=== PATIENT | female | born 1970 ===

== ENCOUNTER 2024-10-10 10:25 | Outpatient (CLI) | payer OTHER, SELFPAY ==
--- NOTE | 2024-10-10 10:31 | MM_ITS ---
WS: [id number] BILATERAL SCREENING DIGITAL TOMOSYNTHESIS MAMMOGRAM WITH CAD HISTORY: SCREENING COMPARISON: 11/16/2017, 12/25/2012 Bilateral CC and MLO views with tomosynthesis and synthetic mammography submitted. Computer aided detection analyzed. Breast composition: There are scattered areas of fibroglandular density. No suspicious masses, microcalcifications or architectural distortion. MM/MM scr BI tomosynthesis [id number] IMPRESSION: BI-RADS: 1 - Negative. FOLLOW UP: 1 Year Follow-up
== END 2024-10-10 10:26 | disposition home or self-care (01) ==
LOC: RAD 10:27
PROVIDERS: Visit Provider Nurse Practitioner Family
DX: Z12.31 Encounter for screening mammogram for malignant neoplasm of breast (principal); R92.323 Mammographic fibroglandular density, bilateral breasts
CPT/HCPCS: 77063; 77067

== ENCOUNTER 2025-02-02 20:29 | Emergency (ER) | payer OTHER, SELFPAY ==
[2025-02-02 20:32] VITALS: BP 175/116; PULSE 118; RESP 20; TEMP 36.5; O2SAT 100; BMI 24.9
--- OUTSIDE RECORDS SUMMARY | 2025-02-02 20:34 | XMS_ITS | Clinical Summary ---
Author Organization [facility] Address [address] [place] [address] Care Team Providers Care [employer] Name Role Phone Arya Garcia Primary Care Provider [phone] Allergies No known active allergies Medications MULTIVITAMIN ORAL Take by mouth. Active MV,CA,MIN/FA/HER BAL NO.159 (ESTROVEN REGULAR STRENGTH ORAL) Take by mouth. Active cyclobenzaprine (FLEXERIL) 10 mg tablet Take 1 Tab by mouth 3 times daily as needed for Spasm. 90 Tab 0 12/29/2013 Active venlafaxine (EFFEXOR XR) 75 mg Extended Release 24 hour capsuleIndicatio ns:Estrogen deficiency Take 1 Cap (75 mg) by mouth daily. 30 Cap 1 07/07/2014 Active Active Problems Problem Noted Date Diagnosed Date S/P laparoscopic hysterectomy 03/24/2013 Overview (03/24/2013): TOTAL LAPAROSCOPIC HYSTERECTOMY BILATERAL SALPINGOOPHORECTOMY morcellation of uterus Routine gynecological examination 06/05/2012 Resolved Problems Problem Noted Date Diagnosed Date Resolved Date Leiomyoma of uterus, unspecified 03/24/2013 07/07/2014 Enlarged uterus 03/24/2013 07/07/2014 Uterine fibroid 03/05/2013 07/07/2014 Pelvic pain in female 03/05/20132014 Family History Medical History Relation Name Comments Heart Disease Father Breast Cancer Maternal Aunt Cancer Maternal Uncle PROSTATE CANC ER Healthy Mother Hypertension Mother Breast Cancer Other MAT G AUNT Ovarian Cancer Neg Hx Relation Name Status Comments Daughter NONE Father Maternal Aunt Alive Maternal Grandmother Maternal Uncle Mother Alive Other MAT G AUNT Alive Sister NONE Social History Tobacco Use Types Packs/Day Years Used Date Smoking Tobacco: Never Smokeless Tobacco: Never Alcohol Use Standard Drinks/Week Comments No 0 (1 standard drink = 0.6 oz pur e alcohol) Comments No Sex and Gender Information Value Date Recorded Sex Assigned at Not on file Legal Sex Female 6:40 AM [employer] Gender Identity Not on file Sexual Orientation Not on file Occupation Industry Job Start Date Job End Date Not on file Not on file Not on file Not on file Last Filed Vital Signs Vital Sign Reading Time Taken Comments Blood Pressure 130/78 07/07/2014 9:33 AM CDT Pulse 63 01/15/2014 7:31 AM [employer] Temperature 36.7 C (98.1 F) 01/15/2014 6:54 AM [employer] Respiratory Rate 16 01/15/2014 7:28 AM [employer] Oxygen Saturation 96% 01/15/2014 7:31 AM [employer] Inhaled Oxygen Concentration - - Weight 67.6 kg (149 lb) 07/07/2014 9:33 AM CDT Height 162.6 cm (5' 4 ) 07/07/2014 9:33 AM CDT Body Mass Index 25.58 07/07/2014 9:33 AM CDT Plan of Treatment Health Maintenance Due Date Last Done Comments DTAP/TDAP/TD VACCINES (1 - Tdap) 12/19/1990 HEPATITIS B VACCINES (1 of 3 - 19+ 3-dose series) 08/1990 BREAST CANCER SCREENING 12/25/2013 12/25/2012 COLORECTAL SCREENING 12/19/2016 Colorectal Cancer Screening 12/19/2016 FIT-DNA Q 3 years 12/19/2016 FIT/FOBT Q 1 year 12/19/2016 Flex Sig/CT Colonography Q 5 years 12/19/2016 ZOSTER VACCINE (1 of 2) 12/19/2021 INFLUENZA VACCINE (#1) 2024 Procedures Procedure Name Priority Date/Time Associated Diagnosis Comments MAMMO SCREEN BILAT W OR WO CAD Routine 12/25/2012 1:16 PM [employer] Other screening mammogram from Last 3 Months or Most Recently Relevant to Health Maintenance Results * MAMMO DIGITAL SCREEN BILAT (12/25/2012 1:16 PM [employer]ER) Anatomical Region Laterality Modality Breast Bilateral Mammography Narrative 12/26/2012 3:03 PM [employer] Bilateral Mammogram Reason for Exam: Screening Comparison: No prior exam(s) for comparison. Findings: Bilateral CC and MLO views were obtained. This examination was reviewed with the aid of a computer-aided detection system(CAD). The breast tissue density is average. Procedure Note Jethro Warren MD - 12/26/2012 Bilateral Mammogram Reason for Exam: Screening Comparison: No prior exam(s) for comparison. Findings: Bilateral CC and MLO views were obtained. This examination was reviewed with the aid of a computer-aided detectionsystem(CAD). The breast tissue density is average. Sharona Velez MD MAMMO ORDERABLES Final Res ult from Last 3 Months or Most Recently Relevant to Health Maintenance Insurance [address] [place] [address] [employer] Advance Directives For more information, please contact: [phone] * Full Code (Latest Code Status on File) Date Activated Date Inactivated Comments 03/24/2013 1:24 PM 03/25/2013 12:10 PM * Full Code Date Activated Date Inactivated Comments 03/24/2013 9:14 AM 03/24/2013 1:24 PM * Full Code Date Activated Date Inactivated Comments 03/24/2013 6:13 AM 03/24/2013 9:14 AM Care Teams Pl[employer] Tableman Relationship Specialty Start Date End Date Arya Garcia DO [address] [place] [address] PCP - General Family Practice 06/05/12
--- OUTSIDE RECORDS SUMMARY | 2025-02-02 20:34 | XMS_ITS | Data Portability ---
Author Organization [facility] Address [address] [place] [address] Care Team Providers Care Academic Tutor Name Role Phone GLADYS GALEANA Primary Care Provider Assessment Encounter Date Assessment Date Assessment LastModified by Organization Details LastModified Time 09/04/2024 09/04/2024 Patient here today for a check-up. Overall she has been doing well. Labs reviewed with patient. Not available 09/04/2024 11:04:59 Plan of Treatment Reminders Order Date Submit Date Provider Last Modified By Organization Details Last Modified Time Details Appointments None recorded. Lab PPD (purified protein derivative) , skin test 2024 025 [facility] ([facility]), [address] [place], [address], 14:21:33 noninvasive colorectal cancer DNA + occult blood screening, QL, stool 2024 025 [email or web address] [id number] [facility], [address], [place], [address], 12:17:02 CMP, serum or plasma 2024 025 [facility], [address] [place] [address], [facility] [address], [place], [address], 10:18:07 lipid panel, blood 2024 025 [facility], [address], [address], [place], [address], 5 10:18:09 CBC 2024 025 [facility], [address], [address], [place], [address], 5 09:16:02 thyrotropin , QN, serum or plasma 2024 025 [facility], [address], [address], [place], [address], 5 09:58:53 PPD (purified protein derivative) , skin test 2023 024 [facility] ([facility]), [address] [place], [address], 4 12:35:31 PPD (purified protein derivative) , skin test 2022 023 [facility] ([facility]), [address] [place], [address], 3 15:57:58 Referral None recorded. Procedures None recorded. Surgeries None recorded. Imaging MAMMO, screening, digital, bilateral 2024 025 [facility] [address] [place], [address], 5 12:10:49 Medication Orders Tubersol 5 tub. unit/0.1 mL intradermal injection solution 2024 025 [email or web address] [id number] Not available 19:54:36 Patient TargetsNo targets recorded. Patient Instructions Encounter Date Encounter Id Patient Instructions Last Modified By Organization Details Last Modified Time 09/04/2024 [id number] Call or return for questions or concerns. Not available 09/18/2024 14:26:03 Reason for Referral None Reported. Results Created Date Observation Date Name Description Value Unit Range Abnormal Flag Note LastModifiedBy Organization Detail LastModifiedTime 10/07/1910/06/2022 PPD (carlos manuel fied prote in deriv ative ), skin test TB negati ve Not Available [facility] ([facility]) [address] [place], [address], 10/06/2022 14:28:42 03/15/19 24 03/15/2023 CBC WBC 6.4 x10 4.0-10 .5 Not Available [facility] [address] [address], [place], [address], 03/15/2023 10:06:46 03/15/19 24 03/15/2023 CBC RBC 4.37 x10 3.50-5 .50 Not Available [facility] [address] [facility] [address], [place], [address], 03/15/2023 10:06:46 03/15/19 24 03/15/2023 CBC HGB 13.4 g/dL 12.0-1 6.0 Not Available [facility] [address] [address], [place], [address], 03/15/2023 10:06:46 03/15/19 24 03/15/2023 CBC HCT 38.2 % 37.0-4 7.0 Not Available [facility] [address] [facility] [address], [place], [address], 03/15/2023 10:06:46 03/15/19 24 03/15/2023 CBC MCV 87.3 fL 80.0-9 9.9 Not Available [facility] [address] [facility] [address], [place], [address], 03/15/2023 10:06:46 03/15/19 24 03/15/2023 CBC MCH 30.7 pg 27.0-3 2.0 Not Available [facility] [address] [facility] 1, [place], [address], 03/15/2023 10:06:46 03/15/19 24 03/15/2023 CBC MCHC 35.1 g/dL 32.0-3 6.0 Not Available [facility] [address] [facility] 1, [place], [address], 03/15/2023 10:06:46 03/15/19 24 03/15/2023 CBC RDW 13.0 % 11.5-1 4.6 Not Available [facility] [address] [facility] 1, [place], [address], 03/15/2023 10:06:46 03/15/19 24 03/15/2023 CBC plt 201.4 x10 140.0- 451.0 Not Available [facility] [address] [facility], [place], [address], 03/15/2023 10:06:46 03/15/19 24 03/15/2023 CBC lymphocytes % 29.2 % 20.0-5 0.0 Not Available [facility] [address] [facility], [place], [address], 03/15/2023 10:06:46 03/15/19 24 03/15/2023 CBC granulcytes % 62.0 % 30.0-7 0.0 Not Available [facility] [address] [facility], [place], [address], 03/15/2023 10:06:46 03/15/19 24 03/15/2023 CBC monocytes % 6.8 % 2.0-10 .0 Not Available [facility] [address] [facility] 1, [place], [address], 03/15/2023 10:06:46 03/15/19 24 03/15/2023 CBC granulcytes# 3.9 x10 Not Lydia ilable [facility] [address] [address], [place], [address], 03/15/2023 10:06:46 03/15/19 24 03/15/2023 CBC lymphocytes # 1.9 x10 Not Available [facility] [address] [address], [place], [address], 03/15/2023 10:06:46 03/15/19 24 03/15/2023 CBC monocytes # 0.4 x10 Not Avai lable [facility] [address] [address], [place], [address], 03/15/2023 10:06:46 03/15/19 24 03/15/2023 CMP (FEMA LE) glucose 88.0 mg/dL 60.0-9 9.0 Not Available [facility] [address] [address], [place], [address], 03/15/2023 11:13:52 03/15/19 24 03/15/2023 CMP (FEMA LE) BUN (blood urea nitrogen) 16.0 mg/dL 10.0-2 6.0 Not Available [facility] [address] [address], [place], [address], 03/15/2023 11:13:52 03/15/19 24 03/15/2023 CMP (FEMA LE) creatinine (serum) 0.7 mg/dL 0.4-1. 5 Not Available [facility] [address] [address], [place], [address], 03/15/2023 11:13:52 03/15/19 24 03/15/2023 CMP (FEMA LE) BUN/creatini ne ratio 21.92 ratio Not Available [facility] [address] [facility], [place], [address], 03/15/2023 11:13:52 03/15/19 24 03/15/2023 CMP (FEMA LE) eGFR calculated 89.3 Not Available [facility] [address] [facility], [place], [address], 03/15/2023 11:13:52 03/15/19 24 03/15/2023 CMP (FEMA LE) total protein 7.8 g/dL 6.0-8. 5 Not Available [facility] [address] [facility] [address], [place], [address], 03/15/2023 11:13:52 03/15/19 24 03/15/2023 CMP (FEMA LE) total bilirubin 1.0 mg/dL 0.2-1. 3 Not Available [facility] [address] [facility] [address], [place], [address], 03/15/2023 11:13:52 03/15/19 24 03/15/2023 CMP (FEMA LE) albumin 4.5 g/dL 3.5-5. 5 Not Available [facility] [address] [facility] [address], [place], [address], 03/15/2023 11:13:52 03/15/19 24 03/15/2023 CMP (FEMA LE) globulin 3.3 calc Not Available [facility] [address] [facility] [address], [place], [address], 03/15/2023 11:13:52 03/15/19 24 03/15/2023 CMP (FEMA LE) AST (SGOT) 23.0 U/L 0.0-46 .0 Not Available [facility] [address] [facility] [address], [place], [address], 03/15/2023 11:13:52 03/15/19 24 03/15/2023 CMP (FEMA LE) altv (SGPT) 18.0 U/L 13.0-6 9.0 normal Not Available [facility] [address] [facility] [address], [place], [address], 03/15/2023 11:13:52 03/15/19 24 03/15/2023 CMP (FEMA LE) A/G ratio 1.4 ratio Not Available [facility] [address] [facility] [address], [place], [address], 03/15/2023 11:13:52 03/15/19 24 03/15/2023 CMP (FEMA LE) ALP phos 68.0 U/L 30.0-1 40.0 normal Not Available [facility] [address] [facility] [address], [place], [address], 03/15/2023 11:13:52 03/15/19 24 03/15/2023 CMP (FEMA LE) calcium 9.8 mg/dL 8.4-10 .5 Not Available [facility] [address] [facility] [address], [place], [address], 03/15/2023 11:13:52 03/15/19 24 03/15/2023 CMP (FEMA LE) sodium 142.0 mmol/ L 136.0- 145.0 Not Available [facility] [address] [facility] [address], [place], [address], 03/15/2023 11:13:52 03/15/19 24 03/15/2023 CMP (FEMA LE) potassium 3.8 mmol/ L 3.5-5. 1 Not Available [facility] [address] [facility] [address], [place], [address], 03/15/2023 11:13:52 03/15/19 24 03/15/2023 CMP (FEMA LE) chloride 109.0 mmol/ L 98.0-1 10.0 normal Not Available [facility] [address] [facility] [address], [place], [address], 03/15/2023 11:13:52 03/15/19 24 03/15/2023 CMP (FEMA LE) C02 28.0 mmol/ L 22.0-3 1.0 Not Available [facility] [address] [facility] [address], [place], [address], 03/15/2023 11:13:52 03/15/19 24 03/15/2023 CMP (FEMA LE) anion gap 5.0 calc Not Available [facility] [address] [facility] [address], [place], [address], 03/15/2023 11:13:52 03/15/19 24 03/15/2023 CMP (FEMA LE) osmolality 293.7 calc Not Available [facility] [address] [facility] [address], [place], [address], 03/15/2023 11:13:52 03/15/19 24 03/15/2023 LIPID PROFI LE (FEMA LE) cholesterol 202.0 mg/dL 0.0-20 0.0 high Not Available [facility] [address] [address], [place], [address], 03/15/2023 11:13:55 03/15/19 24 03/15/2023 LIPID PROFI LE (FEMA LE) trig 124.0 mg/dL 0.0-15 0.0 Not Available [facility] [address] [facility] [address], [place], [address], 03/15/2023 11:13:55 03/15/19 24 03/15/2023 LIPID PROFI LE (FEMA LE) HDL - direct 56.0 mg/dL >40.0 Not Available [facility] [address] [facility] [address], [place], [address], 03/15/2023 11:13:55 03/15/19 24 03/15/2023 LIPID PROFI LE (FEMA LE) VLDL - direct 24.8 mg/dL Not Available [facility] [address] [facility] 1, [place], [address], 03/15/2023 11:13:55 03/15/19 24 03/15/2023 LIPID PROFI LE (FEMA LE) LDL - direct 121.2 mg/dL 0.0-13 0.0 Not Available [facility] [address] [facility] [address], [place], [address], 03/15/2023 11:13:55 03/15/19 24 03/15/2023 TSH, serum or plasm a TSH 1.26 Not Available [facility] ([facility]) [address] [place], [address], 03/15/2023 08:58:46 11/15/19 24 11/15/2023 PPD (carlos manuel fied prote in deriv ative ), skin test TB negati ve Not Available [facility] ([facility]) [address] [place], [address], 11/13/2023 16:56:15 08/07/19 25 08/06/2024 CBC WBC 5.2 x10 4.0-10 .5 Not Available [facility] [address] [facility], [place], [address], 08/06/2024 09:16:02 08/07/1908/06/2024 CBC RBC 4.21 x10 3.50-5 .50 Not Available [facility] [address] [facility], [place], [address], 08/06/2024 09:16:02 06/08/06/2024 CBC HGB 12.5 g/dL 12.0-1 6.0 Not Available [facility] [address] [facility] 1, [place], [address], 08/06/2024 09:16:02 08/07/1908/06/2024 CBC HCT 38.0 % 37.0-4 7.0 Not Available [facility] [address] [facility] 1, [place], [address], 08/06/2024 09:16:02 08/07/1908/06/2024 CBC MCV 90.2 fL 80.0-9 9.9 Not Available [facility] [address] [facility] 1, [place], [address], 08/06/2024 09:16:02 08/07/1908/06/2024 CBC MCH 29.7 pg 27.0-3 2.0 Not Available [facility] [address] [facility] 1, [place], [address], 08/06/2024 09:16:02 08/07/1908/06/2024 CBC MCHC 32.9 g/dL 32.0-3 6.0 Not Available [facility] [address] [facility] 1, [place], [address], 08/06/2024 09:16:02 08/07/1908/06/2024 CBC RDW 12.9 % 11.5-1 4.5 Not Available [facility] [address] [facility] 1, [place], [address], 08/06/2024 09:16:02 08/07/1908/06/2024 CBC plt 197.9 x10 140.0- 451.0 Not Available [facility] [address] [facility] 1, [place], [address], 08/06/2024 09:16:02 08/07/19 25 08/06/2024 CBC lymphocytes % 35.5 % 20.0-5 0.0 Not Available [facility] [address] [facility] 1, [place], [address], 08/06/2024 09:16:02 08/07/1908/06/2024 CBC granulcytes % 53.2 % 30.0-7 0.0 Not Available [facility] [address] [facility] 1, [place], [address], 08/06/2024 09:16:02 08/07/1908/06/2024 CBC monocytes % 8.2 % 2.0-16 .0 Not Available [facility] [address] [facility], [place], [address], 08/06/2024 09:16:02 08/07/19 25 08/06/2024 CBC granulcytes# 2.8 x10 Not Lydia ilable [facility] [address] [facility] [address], [place], [address], 08/06/2024 09:16:02 08/07/1908/06/2024 CBC lymphocytes # 1.8 x10 Not Available [facility] [address] [facility] [address], [place], [address], 08/06/2024 09:16:02 08/07/1908/06/2024 CBC monocytes # 0.4 x10 Not Avai lable [facility] [address] [facility] 1, [place], [address], 08/06/2024 09:16:02 08/07/1908/06/2024 TSH TSH 2.08 uIU/m L 0.49-3 .82 Not Available [facility] [address] [facility] 1, [place], [address], 08/06/2024 09:58:53 08/07/19 25 08/06/2024 CMP (FEMA LE) glucose 90.0 mg/dL 60.0-9 9.0 Not Available [facility] [address] [address], [place], [address], 08/06/2024 10:18:07 08/07/19 25 08/06/2024 CMP (FEMA LE) BUN (blood urea nitrogen) 18.0 mg/dL 10.0-2 6.0 Not Available [facility] [address] [address], [place], [address], 08/06/2024 10:18:07 08/07/19 25 08/06/2024 CMP (FEMA LE) creatinine (serum) 0.7 mg/dL 0.4-1. 5 Not Available [address] [address], [place], [address], 08/06/2024 10:18:07 08/07/19 25 08/06/2024 CMP (FEMA LE) BUN/creatini ne ratio 25.71 ratio Not Available [address] [address], [place], [address], 08/06/2024 10:18:07 08/07/19 25 08/06/2024 CMP (FEMA LE) eGFR calculated 93.4 Not Available [address] [address], [place], [address], 08/06/2024 10:18:07 08/07/19 25 08/06/2024 CMP (FEMA LE) total protein 7.0 g/dL 6.0-8. 5 Not Available [address] [address], [place], [address], 08/06/2024 10:18:07 08/07/19 25 08/06/2024 CMP (FEMA LE) total bilirubin 1.1 mg/dL 0.2-1. 3 Not Available [facility] [address] [facility] [address], [place], [address], 08/06/2024 10:18:07 08/07/19 25 08/06/2024 CMP (FEMA LE) albumin 4.1 g/dL 3.5-5. 5 Not Available [facility] [address] [facility] [address], [place], [address], 08/06/2024 10:18:07 08/07/19 25 08/06/2024 CMP (FEMA LE) globulin 2.9 calc Not Available [facility] [address] [facility] [address], [place], [address], 08/06/2024 10:18:07 08/07/19 25 08/06/2024 CMP (FEMA LE) AST (SGOT) 23.0 U/L 0.0-46 .0 Not Available [facility] [address] [facility] 1, [place], [address], 08/06/2024 10:18:07 08/07/19 25 08/06/2024 CMP (FEMA LE) altv (SGPT) 19.0 U/L 13.0-6 9.0 normal Not Available [facility] [address] [facility] 1, [place], [address], 08/06/2024 10:18:07 08/07/19 25 08/06/2024 CMP (FEMA LE) A/G ratio 1.4 ratio Not Available [facility] [address] [facility] 1, [place], [address], 08/06/2024 10:18:07 08/07/19 25 08/06/2024 CMP (FEMA LE) ALP phos 68.0 U/L 30.0-1 40.0 normal Not Available [facility] [address] [facility] 1, [place], [address], 08/06/2024 10:18:07 08/07/19 25 08/06/2024 CMP (FEMA LE) calcium 9.0 mg/dL 8.4-10 .5 Not Available [facility] [address] [facility] [address], [place], [address], 08/06/2024 10:18:07 08/07/19 25 08/06/2024 CMP (FEMA LE) sodium 140.0 mmol/ L 136.0- 145.0 Not Available [facility] [address] [facility] [address], [place], [address], 08/06/2024 10:18:07 08/07/19 25 08/06/2024 CMP (FEMA LE) potassium 3.3 mmol/ L 3.5-5. 1 low Not Available [facility] [address] [facility] [address], [place], [address], 08/06/2024 10:18:07 08/07/19 25 08/06/2024 CMP (FEMA LE) chloride 106.0 mmol/ L 98.0-1 10.0 normal Not Available [facility] [address] [facility] 1, [place], [address], 08/06/2024 10:18:07 08/07/19 25 08/06/2024 CMP (FEMA LE) C02 27.0 mmol/ L 22.0-3 1.0 Not Available [facility] [address] [facility] 1, [place], [address], 08/06/2024 10:18:07 08/07/19 25 08/06/2024 CMP (FEMA LE) anion gap 7.0 calc Not Available [facility] [address] [facility] 1, [place], [address], 08/06/2024 10:18:07 08/07/19 25 08/06/2024 CMP (FEMA LE) osmolality 290.5 calc Not Available [facility] [address] [facility] 1, [place], [address], 08/06/2024 10:18:07 08/07/19 25 08/06/2024 LIPID PROFI LE (FEMA LE) cholesterol 194.0 mg/dL 0.0-20 0.0 Not Available [facility] [address] [facility] 1, [place], [address], 08/06/2024 10:18:09 08/07/19 25 08/06/2024 LIPID PROFI LE (FEMA LE) trig 98.0 mg/dL 0.0-15 0.0 Not Available [facility] [address] [facility] 1, [place], [address], 08/06/2024 10:18:09 08/07/19 25 08/06/2024 LIPID PROFI LE (FEMA LE) HDL - direct 51.0 mg/dL >40.0 Not Available [facility] [address] [facility] 1, [place], [address], 08/06/2024 10:18:09 08/07/19 25 08/06/2024 LIPID PROFI LE (FEMA LE) VLDL - direct 19.6 mg/dL Not Available [facility] [address] [facility] 1, [place], [address], 08/06/2024 10:18:09 08/07/19 25 08/06/2024 LIPID PROFI LE (FEMA LE) LDL - direct 123.4 mg/dL 0.0-13 0.0 Not Available [facility] [address] [address], [place], [address], 08/06/2024 10:18:09 10/20/19 25 10/19/2024 COLOG UARD cologuard result reportable NEGATI VE negati ve normal The Colog uard (TM) test was perfo rmed on this speci men. NEGAT NGHIA TEST RESUL T. A negat nghia Colog uard resul t indic ates a low likel ihood that a color ectal cance r (CRC) or advan carlos adeno ma (kayla omato us polyp s with more advan carlos pre-m align ant featu res) is prese nt. The chanc e that a perso n with a negat nghia Colog uard test has a color ectal cance r is less than 1 in 1500 (nega tive predi ctive value >99.9 %) or has an advan carlos adeno ma is less than 5.3% (nega tive predi ctive value 94.7% ). These data are based on a prosp ectiv e cross -sect ional study of 10,00 0 indiv idual s at [facility] risk for color ectal cance r who were scree parminder with both Colog uard and colon oscop y. (Alberta Palacio. et al, N Engl J Med 2014; 370(1 4):12 86-12 97) The dyana l value (refe rence range ) for this assay is negat nghia. COLOG UARD RE-SC REENI NG RECOM MENDA TION: Perio dic color ectal cance r scree becki is an impor tant part of preve ntive healt hcare for asymp tomat ic indiv idual s at [facility] risk for color ectal cance r. Follo wing a negat nghia Colog uard resul t, the Ameri can Cance r Socie ty and U.S. Multi -Soci ety Task Force scree becki guide lines recom mend a Colog uard re-sc reeni ng inter christal of 3 years . Refer ences : Ameri can Cance r Socie ty Guide line for Color ectal Cance r Scree becki: https ://chau w.can cer.o rg/ca ncer/ colon -rect al-ca ncer/ detec tion- diagn osis- stagi ng/ac s-rec ommen datio ns.ht ml.; Vel DK, Marium collins CR, Glory butler JK, Color ectal Cance r Scree becki: Recom menda tions for Physi cians and Patie nts from the U.S. Multi -Soci ety Task Force on Color ectal Cance r Scree becki , Thompson olsenog y 2017; 112:1 016-1 030. TEST DESCR IPTIO N: [place] site algor ithmi c feli sis of stool DNA-b iomar kers with hemog lobin immun oassa y. Quant itati ve value s of indiv idual bioma rkers are not repor table and are not assoc iated with indiv idual bioma rker resul t refer ence range s. Colog uard is inten ded for color ectal cance r scree becki of adult s of eithe r sex, 45 years or older , who are [facility] for color ectal cance r (CRC) . Colog uard has been appro abhishek for use by the U.[place]. FDA. The perfo rmanc e of Colog uard was estab lishe d in a cross secti onal study of [facility] adult s aged 50-84 . Colog uard perfo rmanc e in patie nts ages 45 to 49 years was estim ated by sub-g roup feli sis of near- age group s. Colon oscop ies perfo rmed for a posit nghia resul t may find as the most clini albaro signi michael t lesio n: color ectal cance r [4.0% ], advan carlos adeno ma (incl uding sessi le julia jose polyp s great er than or equal to 1cm diame ter) [20%] or non- advan carlos adeno ma [31%] ; or no color ectal neopl aminah [45%] . These estim ates are deriv ed from a prosp ectiv e cross -sect ional scree becki study of 10,00 0 indiv idual s at [facility] risk for color ectal cance r who were scree parminder with both Colog uard and colon oscop y. (Alberta Daley al, N Engl J Med 2014; 370(1 4):12 86-12 97.) Colog uard may produ ce a false negat nghia or false posit nghia resul t (no color ectal cance r or preca ncero us polyp prese nt at colon oscop y follo w up). A negat nghia Colog uard test resul t does not guara ntee the absen ce of CRC or advan carlos adeno ma (pre- cance r). The curre nt Colog uard scree becki inter chrisatl is every 3 years . (Amer ican Cance r Socie ty and U.S. Multi -Soci ety Task Force ). Colog uard perfo rmanc e data in a 10,00 0 patie nt pivot al study using colon oscop y as the refer ence metho d can be acces sed at the follo wing locat ion: www.e xactl abs.c om/re sults . Addit ional descr iptio n of the Colog uard test proce ss, warni ngs and preca ution s can be found at www.c ologu bethany.c om. Not Available [facility] [address], [place], [address], 10/25/2024 10:28:35 10/30/19 25 10/29/2024 PPD (carlos manuel fied prote in deriv ative ), skin test TB negati ve Not Available [facility] ([facility]) [address] [place], [address], 10/27/2024 17:35:08 10/11/19 25 10/10/2024 MAMMO , scree becki, digit al, bilat eral No observ ation record ed. [facility] [address] [place], [address], 10/14/2024 18:08:49 Result Notes None recorded. Problems Name Problem SNOMED Code Status Onset Date Resolution Date Notes Provider Name and Address Organization Details Recorded Time Mitral valve prolapse 510004508 Active 022 Mitral Valve Prolaps e; 1998; 11:52AM by Davis bella, Office Visit; Promote d; acuity set as *; 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 11:57:06 Headache 15955172 Active 025 ELISABETH CASH [facility] 5 08:58:08 Problem Notes None recorded. Procedures Surgical History Date Name Laterality Status Provider Name and Address Organization Details Recorded Time 10/20/19 25 screening for malignant neoplasm of colon completed MOE DUTTON [facility] 10/27/2024 14:12:26 10/11/19 25 screening mammography completed MOE DUTTON [facility] 10/11/2024 15:46:32 02/12/19 14 Hysterectomy completed GLADYS GALEANA, [address], [address], [facility] [place] [place] 09/04/2024 10:59:19 Imaging Results None recorded. Procedure Notes None recorded. Medical Equipment None Reported. Allergies Allergen ID Allergen Name Allergen Category Reaction Reaction Severity Criticality Documentation Date Start Date Code Code System Note Provider Name and Address Organization Details Recorded Time 07967 wasp venoms environme nt anaphylax is Not available Not available 09/09/2022 53977 RxNorm [facility] 10:[facility]33 Medications Name Sig Start Date Stop Date Status Note LastModified by Organization Details LastModified Time doxycycli ne hyclate 100 mg capsule Take 1 capsule twice a day by oral route for 7 days. 05/09 completed Not Available Not Available Not Available prednison e 20 mg tablet TAKE 1 TABLET BY MOUTH EVERY DAY FOR FOUR DAYS 05/09 completed Not Available Not Available Not Available Tubersol 5 tub. unit/0.1 mL intraderm al injection solution Inject 0.1 mL by intrader mal route. 2024 active Not Available Not Available Not Avai lable amitripty line 50 mg tablet TAKE 1 TABLET BY MOUTH EVERY DAY AT BEDTIME FOR HEADACHE or sleep 2024 active Not Available Not Available Not Avai lable betametha sone acetate and sodium phos 6 mg/mL suspensio n for injection 6mg IM one time dose now 09/04 completed given from provider stock Not Available Not Available Not Available amitripty line 25 mg tablet TAKE 1 TABLET BY MOUTH AT BEDTIME FOR 90 DAYS 01/29 completed Not Available Not Available Not Available fluoxetin e 10 mg capsule take 1 capsule BY MOUTH EVERY DAY 05/09 completed Not Available Not Available Not Available epinephri ne 0.3 mg/0.3 mL injection , auto-inje ctor USE ONE INJECTIO N NEEDED 09/04 completed Not Available Not Available Not Available scopolami ne 1 mg over 3 days transderm al patch APPLY ONE PATCH TO SKIN every 72 hours 09/04 completed Not Available Not Available Not Available EpiPen UAD 10/26 completed VO JR/bh; Recorded 08/26/19 22 11:07AM by Elisabeth Cash RN, Historic al Summary; Refill Quantity : 0; Not Available Not Available Not Available fluoxetin e daily 10/26 completed hot flashes; 88965; Recorded 04/14/19 23 11:19AM by Moe Dutton CMT (Authori zed through CHRISTEN Tan), Refill Request; Refill Quantity : 90; Capsule; Not Available Not Available Not Available Vitals Date Recorded Body height Body mass index (BMI) Body weight Oxygen saturation Heart rate Respiratory rate Body temperature Systolic And Diastolic Provider Name and Address Organization Details Last Updated DateTime 4 162.56 cm 27.5 kg/m2 79593.4 8 g 98 % 80 /min 18 /min 98.8 [degF] 160/86 mm[Hg] DAVIS MAGDALENO [facility] 4 12:51:26 Date Recorded Body weight Body height Oxygen saturation Heart rate Respiratory rate Systolic And Diastolic Provider Name and Address Organization Details Last Updated DateTime 5 29598.8 6 g 162.56 cm 98 % 100 /min 18 /min 116/68 mm[Hg] MOE DUTTON [facility] 5 10:44:11 Social History Question Answer Notes LastModified by Organizat ion Details LastModified Time Tobacco Smoking Status Former Smoker DAVIS kwok [facility] 05/10/2023 12:24:20 When Did You Quit Smoking? 16+yearssinc elastcigaret te Information not available 09/04/2024 What Was The Date Of Your Most Recent Tobacco Screening? 09/04/2024 Information not available 09/04/2024 What Is Your Current Pack Years? 10packyears Information not available 09/04/2024 What Is Your Relationship Status? [email or web address] Information not available 05/10/2023 At What Age Did You Start Smoking Tobacco? 18 Information not available 09/04/2024 How Much Tobacco Do You Smoke? No Information not available 09/04/2024 How Many Years Have You Smoked Tobacco? 5 Information not available 09/04/2024 Sex: Unknown Functional Status Question Answer Note LastModified by Organization D etails LastModified Time Do you or have you ever used any other forms of tobacco or nicotine? No Information not available 09/04/2024 Do you or have you ever used any nicotine-free cigarettes, vape, or chewing tobacco? No Information not available 09/04/2024 Mental Status None recorded. Family History Relationship Description Onset Age of this Age Resolved Age Notes LastModified by Organization Details LastModified Time Father Heart disease [email or web address] Not available 12:23:02 Paternal Grandfather Heart disease tneuschwander Not available 12:23:02 Maternal Grandfather Heart disease tneuschwander Not available 12:23:02 Maternal Grandfather Hypertensive disorder tneuschwander Not available 12:23:29 Maternal Grandfather Diabetes mellitus tneuschwander Not available 12:24:08 Mother Hypertensive disorder tneuschwander Not available 12:23:29 Maternal Grandmother Hypertensive disorder tneuschwander Not available 12:23:29 Maternal Grandmother Diabetes mellitus tneuschwander Not available 12:24:08 Maternal Aunt Malignant neoplasm of breast tneuschwander Not available 12:23:41 Medical History No medical history recorded. Gynecological HistoryNo gynecological history recorded. Obstetrics History GPAL:G 0 P 0 0 0 0 Immunizations Vaccine Type Date Status Note Provider Nam e and Address Organization Details Recorded Time Influenza, split virus, quadrivalent, preservative 8 completed Not Available [facility] 09/09/2022 02:48:44 Influenza, split virus, quadrivalent, preservative 7 completed Not Available [facility] 09/09/2022 02:48:44 Influenza, split virus, quadrivalent, preservative 6 completed Not Available [facility] 09/09/2022 02:48:44 TST-PPD intradermal 9 completed Not Available [facility] 09/09/2022 02:48:44 TST-PPD intradermal 6 completed Not Available [facility] 09/09/2022 02:48:45 TST-PPD intradermal 0 completed Not Available [facility] 09/09/2022 02:48:45 TST-PPD intradermal 1 completed Not Available [facility] 09/09/2022 02:48:45 TST-PPD intradermal 2 completed Not Available [facility] 09/09/2022 02:48:45 TST-PPD intradermal 8 completed Not Available [facility] 09/09/2022 02:48:45 TST-PPD intradermal 7 completed Not Available [facility] 09/09/2022 02:48:45 Influenza, split virus, quadrivalent, preservative 0 completed Not Available [facility] 09/09/2022 02:48:45 Influenza, split virus, quadrivalent, preservative 1 completed Not Available [facility] 09/09/2022 02:48:45 Tdap 4 completed Not Available [facility] 09/09/2022 02:48:46 Tdap 1 completed Not Available [facility] 09/09/2022 02:48:46 Td (adult), 2 Lf tetanus toxoid, preservative free, adsorbed 5 completed Not Available [facility] 10/27/2024 16:45:23 Tdap 4 completed Not Available [facility] 10/27/2024 16:45:23 COVID-19, mRNA, LNP-S, PF, 100 mcg/0.5mL dose or 50 mcg/0.25mL dose 1 completed Not Available [facility] 10/27/2024 16:45:23 COVID-19, mRNA, LNP-S, PF, 100 mcg/0.5mL dose or 50 mcg/0.25mL dose 1 completed Not Available [facility] 10/27/2024 16:45:23 Past Encounters Encounter ID Performer Location Encounter Start Date Encounter Closed Date Diagnosis/Indication Diagnosis SNOMED-CT Code Diagnosis ICD10 Code Diagnosis IMO Codes Diagnosis Note [id number] CHRISTEN REED [facility] ([facility]) [address] [place] [phone] 09/18/2022 15:48:46 10/05/2022 10:40:44 Tuberculosis screening 970080412 Z11.1 [id number] CHRISTEN REED [facility]) [address] [place] [phone] 11/13/2023 16:51:04 11/28/2023 07:23:48 Tuberculosis screening 881450878 Z11.1 [id number] 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 [facility] ([facility]) [address] [place] [phone] 5 08/06/2024 08:41:17 08/07/2024 10:02:49 History and physical examination, annual for health maintenance 07578256 Z00.00 [id number] CHRISTEN REED [facility] ([facility]) [address] [place] [address] 09/04/2024 10:29:36 09/04/2024 11:10:07 Screening mammography 64159609 Z12.31 [id number] Screening for malignant neoplasm of colon 876595226 Z12.11 [id number] General ex amination of patient 637186753 Z00.00 [id number] CHRISTEN REED [facility] ([facility]) [address] [place] [address] 10/27/2024 16:45:13 10/29/2024 17:03:29 Tuberculosis screening status 653668683 Z11.1 [id number] Health Concerns Section Related Observation LastModified by Organization Detai ls LastModified Time None Recorded Concern Status LastModified by Organization Details LastModified Time None Recorded Advance Directives Directive None Recorded Payers Insurance Date Sequence Insurance Name Policy Number Policy Lei Covered Member ID Lei Member ID Guarantor Name 11/27/2023 [address] [facility] [id number] Treba Vivian Haqueschwander [id number] [place] Vivian Bergmanwagrayson 10/09/2022 1 *SELF PAY* Tr barrington Rios 10/27/2024 1 [facility] [id number] [place] Vivian Rios [id number] Davis Bergmanwagrayson Notes Date Note Type Note Provider Name and Address Organization Details Recorded Time 09/04/2024 text/html Annual WellnessReported by PatientSocial/Behavior al HistoryFor diet and nutrition, patient reportshealthy diet. For fracture risk, patient reportsno history of fractures.Mental Status:For depression risk, patient reportsno history of mood disorders.Functional AbilityFor hearing, patient reportsno loss of hearing. For vision, patient reportsno vision problems. CHRISTEN REED [address] [place] [address], [phone], [facility] [place] [place], LEddi 09/18/2024 14:26:26 OBGyn Episode No OBEpisode recorded.
--- OUTSIDE RECORDS SUMMARY | 2025-02-02 20:34 | XMS_ITS | Clinical Summary ---
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 30 Capsule 1 07/07/2014 Active Active Problems Problem Noted Date Diagnosed Date S/P laparoscopic hysterectomy 03/24/2013 Overview (06/10/2020): TOTAL LAPAROSCOPIC HYSTERECTOMY BILATERAL SALPINGOOPHORECTOMY morcellation of [...] = 0.6 oz pur e alcohol) Comments Unknown Sex and Gender Information Value Date Recorded Sex Assigned at Not on file Legal Sex Female 9:51 AM [employer] Gender Identity Not on file Sexual Orientation Not on file Last Filed Vital Signs Vital Sign Reading Time Taken Comments Blood Pressure 130/78 07/07/2014 9:33 AM CDT Pulse - - Temperature - - Respiratory Rate - - Oxygen Saturation - - Inhaled Oxygen Concentration - - Weight 67.6 kg (149 lb) 07/07/2014 9:33 AM CDT Height 162.6 cm (5' 4 ) 07/07/2014 9:33 AM CDT Body Mass Index 25.58 07/07/2014 9:33 AM CDT Plan of Treatment Health Maintenance Due Date Last Done Comments DTAP/TDAP/TD VACCINES (1 - Tdap) 12/19/1990 HEPATITIS B VACCINES (1 of 3 - 19+ 3-dose series) 08/1990 HPV/Cotest (21-29) 12/19/1992 CERVICAL CANCER SCREENING 12/19/2001 HPV/Cotest (30-65) 12/19/2001 PAP SMEAR 12/19/2001 BREAST CANCER SCREENING 12/25/2013 12/25/2012 COLORECTAL SCREENING 12/19/2016 Colorectal Cancer Screening 12/19/2016 FIT-DNA Q 3 years 12/19/2016 FIT/FOBT Q 1 year 12/19/2016 Flex Sig/CT Colonography Q 5 years 12/19/2016 ZOSTER VACCINE (1 of 2) 12/19/2021 INFLUENZA VACCINE (#1) 2024 Procedures Procedure Name Priority Date/Time Associated Diagnosis Comments MAMMO SCREEN BILAT W OR WO CAD Routine 12/25/2012 1:16 PM [employer] Other screening mammogram from Last 3 Months or Most Recently Relevant to Health Maintenance Results * MAMMO SCREEN BILAT W OR WO CAD (12/25/2012 1:16 PM [employer]) Anatomical Region Laterality Modality Breast Bilateral Other Narrative 12/26/2012 3:02 PM [employer] Bilateral Mammogram Reason for Exam: Screening Comparison: No prior exam(s) for comparison. Findings: Bilateral CC and MLO views were obtained. This examination was reviewed with the aid of a computer-aided detection system(CAD). The breast tissue density is average. Procedure Note Jethro Warren MD - 04/16/2022 Bilateral Mammogram Reason for Exam: Screening Comparison: No prior exam(s) for comparison. Findings: Bilateral CC and MLO views were obtained. This examination was reviewed with the aid of a computer-aided detection system(CAD). The breast tissue density is average. us Sharona Velez MD MAMMO ORDERABLES Final Res ult from Last 3 Months or Most Recently Relevant to Health Maintenance Care Teams Metal Wire Coating Operator Relationship Specialty Start Date End Date Arya Garcia DO [address] [place] [address] PCP - General Family Practice 06/05/12
--- NOTE | 2025-02-02 20:50 | CTR_ITS ---
PROCEDURE INFORMATION: Exam: CT Head Without Contrast Exam date and time: 02/02/2025 9:10 PM Age: 54 years old Clinical indication: Headache, vomiting TECHNIQUE: Imaging protocol: Computed tomography of the head without contrast. Radiation optimization: All CT scans at this facility use at least one of these dose optimization techniques: automated exposure control; mA and/or kV adjustment per patient size (includes targeted exams where dose is matched to clinical indication); or iterative reconstruction. COMPARISON: No relevant prior studies available. RADIATION DOSE METRICS: Total DLP (mGy-cm): 1063.92 FINDINGS: Brain: No acute intracranial hemorrhage. No mass effect or midline shift. No loss of rivas-white differentiation to suggest an acute infarct. 6 mm calcified extra-axial lesion overlying the left frontal lobe likely a meningioma. Cerebellar tonsils appear low lying, of uncertain clinical significance.. No hydrocephalus or posterior fossa mass effect. Cerebral ventricles: No ventriculomegaly. Paranasal sinuses: Patchy mucosal thickening with fluid layering in the bilateral maxillary sinuses. Mastoid air cells: Visualized mastoid air cells are well aerated. Bones: Unremarkable. No acute fracture. Soft tissues: Unremarkable. CT/CT head wo con* [id number] IMPRESSION: 1. No acute intracranial hemorrhage. 2. Fluid layering in the maxillary sinuses which can be seen in the setting of acute sinusitis. Recommend clinical correlation.
--- NOTE | 2025-02-02 20:51 | W.ED.NAVMDI ---
HPI - Nausea/Vomiting/Diarrhea General: Chief complaint: Nausea/Vomiting/Diarrhea Stated complaint: NVD Time Seen by Provider: 02/02/25 20:39 History of Present Illness: 54-year-old female complaining of flulike symptoms with cough, congestion, headache, vomiting. Vomiting was worse today she says she has been vomiting nonstop since 5:30 PM or so. She has not been able to eat much of anything. She denies fever. She has had headaches before, but headache worsened after she started vomiting. No known sick contacts. 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 Related Data Previous Rx's ?Medication ?Instructions ?Recorded ondansetron 4 mg disintegrating 4 mg PO Q6H PRN nausea and 02/02/25 tablet vomiting #14 tabs Allergies Allergy/AdvReac Type Severity Reaction Status Date / Time No Known Allergies Allergy Verified 02/02/25 20:39 Physical Exam Const: COMMON NORMALS: no acute distress GENERAL APPEARANCE: cooperative; not frail appearing HENMT: COMMON NORMALS: normocephalic, atraumatic and Normal external nose present HEAD & SCALP: normocephalic and atraumatic FACE & SINUS: normal facial exam and face symmetric NOSE: Normal external nose present Eye: COMMON NORMALS: Equal, round and reactive pupils present and EOMs intact bilaterally PUPIL: Yes Equal, round and reactive pupils present Neck/C-Spine: GENERAL: Yes trachea midline Chest: CHEST: Yes Symmetrical chest wall rise Resp: COMMON NORMALS: normal respiratory effort, No retractions, No use of accessory muscles and clear to auscultation bilaterally AUSCULTATION: clear to auscultation bilaterally Cardio: COMMON NORMALS: regular rate and regular rhythm RATE: regular rate RHYTHM: regular rhythm GI: COMMON NORMALS: Normal to inspection, nondistended, normoactive bowel sounds present Extremity: COMMON NORMALS: no pedal edema Neuro: JASMIN COMA SCALE: document GCS findings Jasmin coma scale eye opening: Spontaneous Jasmin coma scale verbal response: Orientated [place] coma scale motor response: Obey commands [place] coma scale total score: 15 SENSORY EXAM: Yes extremities (intact) Psych: COMMON NORMALS: speech normal SPEECH: Yes normal speech Skin: COMMON NORMALS: no rashes or lesions noted GENERAL SKIN EXAM: no rashes or lesions noted Course Vital Signs: Vital signs: Vital Signs Temperature 97.7 F 02/02/25 20:32 Pulse Rate 100 12/22/25 23:56 Respiratory Rate 20 H 02/02/25 20:32 Blood Pressure 137/89 02/02/25 23:56 Pulse Oximetry 99 02/02/25 23:56 Oxygen Delivery Me thod Room Air 02/02/25 23:56 MDM - Nausea/Vomiting/Diarrhea Medical Decision Making Vitals are stable here. Blood pressures improved. Heart rate is down after fluid bolus. Headache is improved after Toradol Zofran and morphine with fluid bolus. Head CT is negative, safe acute sinusitis. She is COVID-positive. Potassium is 2.8, and is repleted. Other laboratory is not remarkable. With improvement in her symptoms, will discharge home Lab Data 02/02/25 20:55 02/02/25 20:[address] 02/02/25 20:50 IMPRESSION: 1. No acute intracranial hemorrhage. 2. Fluid layering in the maxillary sinuses which can be seen in the setting of acute sinusitis. Recommend clinical correlation. Laboratory Results WBC 9.21 10^3/uL (3.29-11.43) 02/02/25 20:55 RBC 4.53 10^6/uL (3.85-5.65) 02/02/25 20:55 Hgb 13.20 g/dL (11.27-16.99) 02/02/25 20:55 Hct 38.3 % (36-47) 02/02/25 20:55 MCV 84.5 fl (85-98) L 02/02/25 20:55 MCH 29.1 pg (27-33) 02/02/25 20:55 MCHC 34.5 g/dL (30-55) 02/02/25 20:55 RDW 12.3 % (12.1-15.1) 02/02/25 20:55 Plt Count 272 10^3/cmm (157-399) 02/02/25 20:55 MPV 10.2 fL (7.4-10.4) 02/02/25 20:55 Neut % (Auto) 70.2 % 02/02/25 20:55 Lymph % (Auto) 23.8 % 02/02/25 20:55 [place] % (Auto) 5.3 % 02/02/25 20:55 Eos % (Auto) 0.2 % 02/02/25 20:55 Baso % (Auto) 0.2 % 02/02/25 20:55 Neut # (Auto) 6.46 10^3/uL (1.8-7.7) 02/02/25 20:55 Lymph # (Auto) 2.2 10^3/uL (0.8-4.8) 02/02/25 20:55 [place] # (Auto) 0.5 10^3/uL (0.2-0.9) 02/02/25 20:55 Eos # (Auto) 0.0 10^3/uL (0.0-0.8) 02/02/25 20:55 Baso # (Auto) 0.0 10^3/uL (0.0-0.1) 02/02/25 20:55 Nucleated RBC % (auto) 0 % 02/02/25 20:55 Nucleated RBCs # 0.0 /100WBC 02/02/25 20:55 Sodium 140 mmol/L (136-145) 02/02/25 20:55 Potassium 2.8 mmol/L (3.5-5.1) L* 02/02/25 20:55 Chloride 98 mmol/L (98-107) 02/02/25 20:55 Carbon Dioxide 24 mmol/L (22-29) 02/02/25 20:55 Anion Gap 20.8 (5-19) H 02/02/25 20:55 BUN 15 mg/dL (6-20) 02/02/25 20:55 Creatinine 0.7 mg/dL (0.5-0.9) 02/02/25 20:55 GFR Calculation 87.5 mL/min (90-130) L 02/02/25 20:55 Glucose 114 mg/dL (65-115) 02/02/25 20:55 Calculated Osmolality 292 mOsm/kg (285-295) 02/02/25 20:55 Lactic Acid 3.2 mmol/L (0.5-2.2) H 02/02/25 20:55 Calcium 10.8 mg/dL (8.5-10.5) H 02/02/25 20:55 Magnesium 1.8 mg/dL (1.7-2.3) 02/02/25 20:55 Total Bilirubin 1.1 mg/dL (0.15-1.2) 02/02/25 20:55 AST 17 U/L (0-32) 02/02/25 20:55 ALT 13 U/L (0-33) 02/02/25 20:55 Alkaline Phosphatase 83 U/L (35-105) 02/02/25 20:55 C-Reactive Protein 26.1 mg/L (0.0-4.9) H 02/02/25 20:55 Total Protein 7.8 g/dL (6.6-8.7) 02/02/25 20:55 Albumin 4.5 g/dL (3.5-5.2) 02/02/25 20:55 Globulin 3.3 g/dL (1.3-4.6) 02/02/25 20:55 Urine Color Yellow (Yellow) 02/02/25 21:57 Urine Appearance Cloudy (CLEAR) A 02/02/25 21: Urine pH >=9.0 (5-7) A 02/02/25 21: Ur Specific [place] 1.016 (1.005-1.030) 02/02/25 21:57 Urine Protein Trace (Negative) 02/02/25 21:57 Urine Glucose (UA) Norm (Normal) 02/02/25 21:57 Urine Ketones 3+ (Negative) H 02/02/25 21:57 Urine Blood Neg (Negative) 02/02/25 21:57 Urine Nitrate Negative (Negative) 02/02/25 21:57 Urine Bilirubin Neg (Negative) 02/02/25 21:57 Urine Urobilinogen 1.0 mg/dL (Negative) 02/02/25 21: Ur Leukocyte Esterase Negative (Negative) 02/02/25 21:57 Urine RBC 0-2 /hpf (0-2) 02/02/25 21:57 Urine WBC 0-5 /hpf (0-5) 02/02/25 21:57 Ur Squamous Epith Cells 0-4 /hpf (0-5) H 02/02/25 21:57 Amorphous Sediment Not Reportable 02/02/25 21:57 Urine Bacteria None /hpf (NONE) 02/02/25 21:57 Hyaline Casts 0-4 /lpf H 02/02/25 21:57 Influenza A (PCR) Negative (Negative) 02/02/25 21:00 Influenza Type B (PCR) Negative (Negative) 02/02/25 21:00 RSV (PCR) Negative (Negative) 02/02/25 21:00 SARS-CoV-2 (PCR) Positive (Negative) A 02/02/25 21:00 All radiology interpretation(s) finalized by discharge Discharge Plan Discharge Patient Disposition: Home Clinical Impression: COVID-19 Condition: Stable Prescriptions: New ondansetron 4 mg tablet,disintegrating 4 mg PO Q6H PRN (Reason: nausea and vomiting) Qty: 14 0RF Discharge Orders: Discharge ED (Routine); Ordered 02/02/25 Ordered By: Fito Obrien Patient Instructions: COVID-19 (Coronavirus Disease 2019) (ED), Opioid Safety, Pain Management, Patient Portal & Silvestre Instructions Activity Restrictions/Additional Instructions: Follow a liquid diet for the next 24 hours. Take nausea medication scheduled every 4 hours while awake for the first 24 hours, then as needed following that. 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
[2025-02-02] MEDS: ondansetron 2 mg/ML SDV 2 mL 8 MG IV (20:53)
[2025-02-02 21:06] LABS: Hematocrit 38.3 % (36-47); Hemoglobin 13.20 g/dL (11.27-16.99); Mean Corpuscular HGB Conc 34.5 g/dL (30-55); Mean Corpuscular Hemoglobin 29.1 pg (27-33); Mean Corpuscular Volume 84.5 fl (85-98); Nucleated Red Blood Cells % 0 %; Platelet Count 272 10^3/cmm (157-399); Red Blood Count 4.53 10^6/uL (3.85-5.65); White Blood Count 9.21 10^3/uL (3.29-11.43)
--- NOTE | 2025-02-02 21:07 | PC.NURSE ---
pt refused morphine states she did not want it and states it makes her nauseous.
[2025-02-02 21:19] VITALS: BP 135/98; PULSE 90; O2SAT 100
[2025-02-02 21:23] LABS: Lactic Sepsis W/Reflex 3.2 mmol/L (0.5-2.2)
[2025-02-02 21:24] LABS: Alanine Aminotransferase 13 U/L (0-33); Albumin Level 4.5 g/dL (3.5-5.2); Alkaline Phosphatase 83 U/L (35-105); Anion Gap 20.8 (5-19); Aspartate Amino Transferase 17 U/L (0-32); Blood Urea Nitrogen 15 mg/dL (6-20); Calcium 10.8 mg/dL (8.5-10.5); Carbon Dioxide 24 mmol/L (22-29); Chloride 98 mmol/L (98-107); Globulin 3.3 g/dL (1.3-4.6); Glucose 114 mg/dL (65-115); Magnesium 1.8 mg/dL (1.7-2.3); Osmolality Calculated 292 mOsm/kg (285-295); Sodium 140 mmol/L (136-145); Total Protein 7.8 g/dL (6.6-8.7)
[2025-02-02 21:28] LABS: Potassium 2.8 mmol/L (3.5-5.1)
[2025-02-02 21:41] LABS: Respiratory Syncytial Virus Ce NEGATIVE (Negative)
[2025-02-02] MEDS: potassium chloride oral liq 20 mEq/15 mL UDC 40 MEQ PO (21:46)
[2025-02-02 22:00] VITALS: BP 145/97; PULSE 98; O2SAT 100
[2025-02-02 22:10] LABS: SARS-CoV-2 PCR Positive (Negative)
[2025-02-02] MEDS: lidocaine 1% 5 ML in potassium chloride premix 100 ML 52.5 ML IV (22:18)
[2025-02-02 22:30] VITALS: BP 152/98; PULSE 90; O2SAT 100
[2025-02-02 22:42] LABS: Add Urine Microscopic? YES; Glucose Urine UA Norm (Normal); Nitrate Urine Negative (Negative); Specific Gravity, Urine 1.016 (1.005-1.030)
[2025-02-02 22:50] LABS: Reflex Lactate Order REFLEX LACTIC ORDERD
[2025-02-02 23:56] VITALS: BP 137/89; PULSE 100; O2SAT 99
[2025-02-03 00:51] LABS: Lactic Acid level (Lactate) 0.8 mmol/L (0.5-2.2)
== END 2025-02-03 00:32 | disposition home or self-care (01) ==
PROVIDERS: Emergency Provider Emergency Medicine
DX: U07.1 COVID-19 (principal); Z11.52 Encounter for screening for COVID-19
CPT/HCPCS: 36415; 70450; 80053; 81001; 83605; 83735; 85025; 86140; 87637; 96361; 96374; 96375; 99285; J1885; J2405; J3480; J7030; J9999; Q0162